=== PATIENT | female | born 2000 | race Hispanic/Latino ===

== ENCOUNTER 2024-02-16 13:36 | Emergency (ER) | payer MEDICARE ==
[~2024-02-16] VITALS: Ht 162.6 cm; Wt 54.4 kg
[2024-02-16 13:45] VITALS: PULSE 81; RESP 14; TEMP 98; O2SAT 99
[2024-02-16] MEDS ORDERED: DOXYCYCLINE HY100 MG PO (14:16)
== END 2024-02-16 14:38 | disposition home or self-care (01) ==
LOC: FSED 13:40
DX: T81.49XA Infection following a procedure, other surgical site, initial encounter (principal)
CPT/HCPCS: 99282